=== PATIENT | female | born 1975 | race American Indian/Alaskan Native ===

== ENCOUNTER 2016-11-16 01:51 | Emergency (ER) | payer MEDICAID ==
[2016-11-16] MEDS ORDERED: ZOFRAN ODT PO PRN (03:17)
[2016-11-16] MEDS ORDERED: TYLENOL PO ONE (03:18)
[2016-11-16 03:57] LABS: Basophils % (Auto) 0.2 % (0.0-1.8); Eosinophils % (Auto) 0.3 % (0.0-4.3); Hematocrit 28.7 % (30.3-42.9); Hemoglobin 9.7 gm/dl (10.1-14.3); Mean Corpuscular HGB Conc 34 % (30-34); Mean Corpuscular Hemoglobin 30 pg (28-32); Mean Corpuscular Volume 87 fl (79-97); Platelet Count 217 K/mm3 (140-440); Red Cell Distribution Width 14.2 % (13.2-15.2); White Blood Count 11.1 K/mm3 (4.5-11.0)
[2016-11-16 04:09] LABS: Alanine Aminotransferase 11 units/L (7-56); Albumin 3.6 g/dL (3.9-5); Albumin/Globulin Ratio 1.3 %; Alkaline Phosphatase 111 units/L (35-129); Anion Gap 18 mmol/L; Bilirubin,Total < 0.20 mg/dL (0.1-1.2); Blood Urea Nitrogen 6 mg/dL (7-17); Calcium 8.7 mg/dL (8.4-10.2); Carbon Dioxide 20 mmol/L (22-30); Chloride 99.6 mmol/L (98-107); Glucose 89 mg/dL (65-100); Potassium 3.3 mmol/L (3.6-5.0); Sodium 134 mmol/L (137-145); Total Protein 6.4 g/dL (6.3-8.2)
--- NOTE | 2016-11-16 11:28 | Emergency Department Report ---
ED General Adult HPI - General Chief complaint: Upper Respiratory Infection Stated complaint: fever Time Seen by Provider: 11/16/16 10:50 Source: patient Mode of arrival: Ambulatory Limitations: No Limitations - History of Present Illness Initial comments: 40-year-old female presents to the emergency department complaining of fever and chills. Patient states for the past 3 days she has been having subjective fever, chills, and body aches. She reports dry cough. There has been occasional nausea and vomiting. She denies diarrhea. Patient is currently 26 weeks . She has previously been diagnosed with cervicitis and is currently taking levofloxacin. She was seen in labor and delivery prior to coming to the emergency department and cleared by [employer]LL LINE INSPECTOR. Patient also reports that her son had similar symptoms approximately 5 days ago, which have resolved. There are no other complaints. -: Gradual, days(s) (3) Location: head, chest, back Radiation: non-radiation Severity scale (0 -10): 9 Quality: aching Consistency: constant Improves with: none Worsens with: none Associated Symptoms: cough, fever/chills, nausea/vomiting Treatments Prior to Arrival: none - Related Data Previous Rx's Medication Instructions Recorded Last Taken Type Levofloxacin [Levaquin TAB] 500 mg PO QDAY #14 tablet 11/08/16 Unknown Rx Benzonatate [Tessalon Perles] 100 mg PO Q8HR #10 capsule 11/16/16 Unknown Rx Allergies Allergy/AdvReac Type Severity Reaction Status Date / Time lactase [From Dairy Aid] Allergy Diarrhea Verified 10/30/16 01:56 peanut Allergy Angioedema Verified 10/30/16 01:57 ED Review of Systems ROS: Stated complaint: Other details as noted in HPI Comment: All other systems reviewed and negative Constitutional: chills, fever ENT: throat pain Respiratory: cough Musculoskeletal: myalgia ED Past Medical Hx - Past Medical History Previous Medical History?: Yes Hx Hypertension: No Hx Congestive Heart Failure: No Hx Diabetes: No Hx Deep Vein Thrombosis: No Hx Renal Disease: No Hx Sickle Cell Disease: No Hx Seizures: Yes Hx Asthma: Yes Hx COPD: No Hx HIV: No - Surgical History Past Surgical History?: Yes Additional Surgical History: Cervical surgery - Family History Family history: no significant - Social History Smoking Status: Current Every Day Smoker Substance Use Type: None - Medications Home Medications: Home Medications Medication Instructions Recorded Confirmed Last Taken Type Levofloxacin [Levaquin TAB] 500 mg PO QDAY #14 tablet 11/08/16 Unknown Rx Benzonatate [Tessalon Perles] 100 mg PO Q8HR #10 capsule 11/16/16 Unknown Rx ED Physical Exam - General Limitations: No Limitations General appearance: alert, in no apparent distress - Head Head exam: Present: atraumatic, normocephalic - Eye Eye exam: Present: normal appearance, PERRL, EOMI - ENT ENT exam: Present: normal exam, normal orophraynx, mucous membranes moist - Neck Neck exam: Present: normal inspection, full ROM. Absent: tenderness - Respiratory Respiratory exam: Present: normal lung sounds bilaterally. Absent: respiratory distress, chest wall tenderness - Cardiovascular Cardiovascular Exam: Present: regular rate, normal rhythm, normal heart sounds - GI/Abdominal GI/Abdominal exam: Present: soft, distended (gravid uterus), normal bowel sounds. Absent: tenderness - Extremities Exam Extremities exam: Present: normal inspection, full ROM. Absent: tenderness - Back Exam Back exam: Present: normal inspection, full ROM. Absent: tenderness - Neurological Exam Neurological exam: Present: alert, oriented X3. Absent: motor sensory deficit - Skin Skin exam: Present: warm, dry, intact ED Course Vital Signs 11/16/16 11/16/16 11/16/16 02:12 02:29 02:58 Temperature 98.6 F Pulse Rate 96 H 102 H 94 H Respiratory 18 Rate Blood Pressure 108/62 101/66 Blood Pressure 101/66 [Left] O2 Sat by Pulse 95 99 Oximetry ED Medical Decision Making - Lab Data Result diagrams: 11/16/16 03:37 11/16/16 03:37 - Medical Decision Making Lab results reviewed and discussed with the patient. Patient is currently being treated for cervicitis and her urinalysis appears consistent with this. Patient will be continued on her Levaquin. Patient will be discharged home at this time with supportive care to follow-up with her TOLL LINE INSPECTOR. - Differential Diagnosis viral syndrome, influenza, pharyngitis, bronchitis Critical care attestation.: If time is entered above; I have spent that time in minutes in the direct care of this critically ill patient, excluding procedure time. ED Disposition Clinical Impression: Viral syndrome Disposition: DC-01 TO HOME OR SELFCARE Is pt being admited?: No Condition: Stable Instructions: Viral Syndrome (ED) Additional Instructions: Call and make appointment to see provider as soon as possible. You may take Tylenol products for cold symptoms as directed. Drink more water up to a gallon is suggested daily. Refrain from smoking. Prescriptions: Benzonatate [Tessalon Perles] 100 mg PO Q8HR #10 capsule Referrals: SARAH CHILDS MD [Primary Care Provider] - Time of Disposition: 12:12
[2016-11-16 11:43] LABS: Bilirubin,Urine NEG (Negative); Blood,Urine SM (Negative); Ketones,Urine TR mg/dL (Negative); Leukocyte Esterase,Urine TR (Negative); Nitrite,Urine NEG (Negative); Urobilinogen,Urine < 2.0 mg/dL (<2.0)
[2016-11-16 11:54] LABS: RBC,Urine > 182.0 /HPF (0.0-6.0); WBC,Urine > 182.0 /HPF (0.0-6.0)
[2016-11-16 12:56] VITALS: BP 105/58
== END 2016-11-16 12:56 | disposition home or self-care (01) ==
LOC: ED 01:51 → TRG 01:51 → ED 02:49 → TRG 02:49 → EDSTATUS 02:50 → ED 03:00 → TRG 12:56
DX: O26.892 Other specified pregnancy related conditions, second trimester (principal); B34.9 Viral infection, unspecified; J45.909 Unspecified asthma, uncomplicated; R56.9 Unspecified convulsions; F17.200 Nicotine dependence, unspecified, uncomplicated; Z91.013 Allergy to seafood; Z91.010 Allergy to peanuts; Z3A.26 26 weeks gestation of pregnancy
CPT/HCPCS: 36415; 51701; 59025; 80053; 81001; 85025; 87116; 87400; 87430; 99283; Q0162